=== PATIENT | female | born 1960 | race Hispanic/Latino ===

== ENCOUNTER 2016-08-09 14:50 | Emergency (ER) | payer OTHER ==
[~2016-08-09] VITALS: Ht 149.9 cm; Wt 63.5 kg
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
--- NOTE | 2016-08-09 16:17 | RADIOLOGY REPORT ---
EXAMINATION: X-RAY LEFT SHOULDER AND LEFT HUMERUS CLINICAL INFORMATION: Status post fall COMPARISON: None. TECHNIQUE: 3 views of the left shoulder and 2 views of the left humerus FINDINGS: Mildly displaced comminuted appearing fracture left humeral neck. Humeral head maintains articulation with the glenoid. Visualized portions of the clavicle and scapula are intact. Visualized left ribs are also intact. IMPRESSION: Mildly displaced comminuted left humeral neck fracture.
[2016-08-09] MEDS ORDERED: VICODIN 5-3001 EACH PO (16:55)
--- NOTE | 2016-08-09 17:09 | CT SCAN REPORT ---
EXAMINATION: CT SCAN OF THE HEAD, FACE, AND CERVICAL SPINE. CLINICAL INFORMATION: Fall. Evaluate for acute cranial hemorrhage. Evaluate for facial or cervical spine fracture. COMPARISON: No relevant prior imaging available. TECHNIQUE: Land Examiner images were obtained. CT acquisition of the head, face, and cervical spine were obtained without intravenous administration of contrast. Data was reformatted into multiplanar images at the acquisition workstation. DLP: 1505.8 mGy-cm. FINDINGS: Head: There is mild focal swelling of the left frontal scalp. The underlying calvarium is intact. There is no acute intracranial hemorrhage. No abnormal extra-axial collection. Lateral and third ventricles are normal. No hydrocephalus. Rubalcava-white matter differentiation is preserved and there is no evidence of acute territorial infarct. Face: The mandible is intact and the temporomandibular joints are symmetric. The zygomatic arches, pterygoid processes, and nasal bones are intact. There is no evidence of acute maxillofacial fracture. There is minimal mucosal thickening within the alveolar recess of the left maxillary sinus. The remainder of the paranasal sinuses are well aerated and the major paranasal sinus change pathways are patent. Globes are symmetric. There is no retrobulbar mass or inflammation. The lamina papyracea and orbital floors are intact. Orbital apices are unremarkable. Cervical spine: There is anatomic alignment and position of the vertebral bodies and posterior elements of the cervical spine in the sagittal dimension. Vertebral body heights are preserved. There is no acute fracture. No abnormal prevertebral soft tissue swelling. There is asymmetric arthrosis of the right C5-C6 articular facet joint. Grossly there is no evidence of bony canal compromise. Soft tissues of the neck are unremarkable. Thyroid gland is normal. Lung apices are clear. IMPRESSION: There is mild swelling of the left frontal scalp. The underlying calvarium is intact. There is no acute intracranial hemorrhage. Dedicated CT imaging of the face and cervical spine reveal no evidence of acute fracture.
[2016-08-09] MEDS ORDERED: CRESTOR10 M1 PO (17:13)
[2016-08-09] MEDS ORDERED: LISINOPRIL10 M1 PO (17:14)
[2016-08-09] MEDS ORDERED: PANTOPRAZOLE SO40 M1 PO (17:14)
[2016-08-09] MEDS ORDERED: CENTRUM SILVER1 EACH PO (17:14)
[2016-08-09] MEDS ORDERED: CARVEDILOL12.5 M1 PO (17:14)
[2016-08-09 17:40] VITALS: BP 145/80
== END 2016-08-09 17:41 ==
LOC: ERH 14:50
DX: S42.202A Unspecified fracture of upper end of left humerus, initial encounter for closed fracture (principal); W10.9XXA Fall (on) (from) unspecified stairs and steps, initial encounter; Y92.9 Unspecified place or not applicable; Y93.9 Activity, unspecified
CPT/HCPCS: 73030-LT; 73060-LT; 90714